=== PATIENT | female | born 1995 | race African-American/Black ===

== ENCOUNTER 2017-10-13 22:09 | Emergency (ER) | payer OTHER ==
[~2017-10-13] VITALS: Ht 160 cm; Wt 104.3 kg
--- NOTE | ~2017-10-13 | EKG ---
[address] [place] [address] ELECTROCARDIOGRAM REPORT Name: MYNOR PIZANO [facility] [id number] Admission: 10/13/17 Attend Phys: Discharge: 10/14/17 Date of : [birth year] Report #: [id number] THIS REPORT FOR: //name// [facility] ED Test Date: 2017-10-13 Test Time: 22:36:53 Pat Name: MYNOR PIZANO Department: Room: Gender: Lead Tinner: TAMAR : 1995 Requested By: Kale Chamberlani Order Number: [id number] MD: Kike Cevallos Measurements Intervals [place] Rate: 96 P: 17 [place]: 138 QRS: 35 QRSD: 84 T: 17 QT: 352 QTc: 445 Interpretive Statements Sinus rhythm No significant abnormality No previous ECG available for comparison Electronically Signed On 10-14-2017 8:43:55 PATIENT SUPPORT PARTNER by Kike Cevallos [email or web address] <ELECTRONICALLY SIGNED> By: Kike Cevallos MD, [facility] 10/14/17 0843 [id number] 2236 Kike Cevallos MD, FACC /EPI
[2017-10-13 23:06] LABS: ABSOLUTE NEUTROPHILS 4.7 thou/uL (1.4-8.2); BASOPHILS 0.9 % (0.0-2.0); EOSINOPHILS 2.5 % (0.0-3.0); HEMATOCRIT 34.1 % (37.0-47.0); HEMOGLOBIN 11.1 gm/dL (12.0-15.0); LYMPHOCYTES 22.5 % (24.0-44.0); MCHC 32.4 g/dL (28.0-37.0); MCV 74.1 fL (80.0-100.0); MONOCYTES 8.1 % (1.0-8.0); PLATELET COUNT 401 thou/uL (150-400); RDW 18.8 % (10.5-14.5); WBC 7.1 thou/uL (4.0-11.0)
[2017-10-13 23:08] LABS: ANION GAP 8 mmol/L (7-16); BUN 10 mg/dL (7-18); CALCIUM 8.7 mg/dL (8.5-10.1); CHLORIDE 103 mmol/L (98-107); CO2 26 mmol/L (21-32); GLUCOSE 95 mg/dL (74-106); POTASSIUM 3.6 mmol/L (3.5-5.1); SODIUM 137 mmol/L (136-145)
[2017-10-13 23:17] LABS: ALBUMIN 3.4 g/dL (3.4-5.0); SGOT 21 U/L (15-37); SGPT 32 U/L (30-65); TOTAL BILIRUBIN 0.3 mg/dL (<0.1-1.0); TOTAL PROTEIN 7.4 g/dL (6.4-8.2); TROPONIN-I < 0.04 ng/mL (<0.06)
== END 2017-10-14 02:33 ==
LOC: ER 22:09
PROVIDERS: Emergency Medicine
DX: R55 Syncope and collapse (principal); Z88.1 Allergy status to other antibiotic agents

== ENCOUNTER 2018-09-25 12:55 | Emergency (ER) | payer OTHER ==
[~2018-09-25] VITALS: Ht 160 cm; Wt 98.0 kg
[2018-09-25 13:14] LABS: ABSOLUTE NEUTROPHILS 3.6 thou/uL (1.4-8.2); BASOPHILS 0.8 % (0.0-2.0); HEMATOCRIT 34.7 % (37.0-47.0); HEMOGLOBIN 11.5 gm/dL (12.0-15.0); LYMPHOCYTES 31.5 % (24.0-44.0); MCH 25.6 pg (26.0-34.0); MCV 77.7 fL (80.0-100.0); MONOCYTES 6.6 % (1.0-8.0); PLATELET COUNT 341 thou/uL (150-400); POLYS 59.1 % (36.0-66.0); RBC 4.47 mil/uL (4.20-5.00); RDW 19.2 % (10.5-14.5); WBC 6.2 thou/uL (4.0-11.0)
[2018-09-25 13:22] LABS: CALCIUM 8.8 mg/dL (8.5-10.1); CREATININE 0.8 mg/dL (0.6-1.0); POTASSIUM 3.8 mmol/L (3.5-5.1)
[2018-09-25 14:00] LABS: ANISOCYTOSIS 1+; PLATELET ESTIMATE NORMAL
[2018-09-25 15:03] VITALS: BP 142/88
--- NOTE | 2018-09-25 15:17 | EKG ---
[place] [address] [facility] [place] [address] ELECTROCARDIOGRAM REPORT Name: MYNOR PIZANO 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
== END 2018-09-25 15:06 | disposition home or self-care (01) ==
LOC: ER 12:55
PROVIDERS: Emergency Medicine
DX: R55 Syncope and collapse (principal); I10 Essential (primary) hypertension; K21.9 Gastro-esophageal reflux disease without esophagitis; Z88.1 Allergy status to other antibiotic agents; Z91.018 Allergy to other foods; Z88.8 Allergy status to other drugs, medicaments and biological substances

== ENCOUNTER 2018-12-09 09:59 | Emergency (ER) | payer OTHER ==
[~2018-12-09] VITALS: Ht 160 cm; Wt 93.0 kg
[2018-12-09] MEDS ORDERED: PRILOSEC 10MG C10 MG PO (10:03)
[2018-12-09 10:32] LABS: ABSOLUTE NEUTROPHILS 4.9 thou/uL (1.4-8.2); BASOPHILS 0.5 % (0.0-2.0); EOSINOPHILS 0.8 % (0.0-3.0); HEMATOCRIT 36.6 % (37.0-47.0); LYMPHOCYTES 16.7 % (24.0-44.0); MCH 25.6 pg (26.0-34.0); MCHC 32.9 g/dL (28.0-37.0); MCV 77.7 fL (80.0-100.0); PLATELET COUNT 324 thou/uL (150-400); RBC 4.71 mil/uL (4.20-5.00); WBC 6.5 thou/uL (4.0-11.0)
[2018-12-09 10:37] LABS: CALCIUM 9.5 mg/dL (8.5-10.1); CREATININE 0.9 mg/dL (0.6-1.0); POTASSIUM 3.4 mmol/L (3.5-5.1)
[2018-12-09 10:44] LABS: ALBUMIN 3.9 g/dL (3.4-5.0); TOTAL BILIRUBIN 0.5 mg/dL (<0.1-1.0)
[2018-12-09 10:47] LABS: URINE BILIRUBIN NEGATIVE (Negative); URINE BLOOD NEGATIVE (Negative); URINE CLARITY CLEAR; URINE COLOR YELLOW; URINE GLUCOSE-RANDOM* NEGATIVE (Negative); URINE KETONES 1+ (Negative); URINE LEUKOCYTES-REFLEX TRACE (Negative); URINE NITRITE-REFLEX NEGATIVE (Negative); URINE PROTEIN (DIPSTICK) NEGATIVE (Negative); URINE SPECIFIC GRAVITY 1.015 (1.005-1.035)
[2018-12-09] MEDS ORDERED: ONDANSETRON HCL4 M2 PO (11:43)
[2018-12-09 11:58] VITALS: BP 143/86
--- NOTE | 2018-12-09 17:16 | EKG ---
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1995 Requested By: Madison Cruz Order Number: [id number] MD: Floyd Beth Measurements Intervals [place] Rate: 91 P: 33 MD: 140 QRS: 32 QRSD: 87 T: 11 QT: 331 QTc: 408 Interpretive Statements Sinus rhythm Compared to ECG 09/25/2018 13:08:59 No significant changes Electronically Signed On 12-09-2018 17:15:46 CDT by Floyd Beth [email or web address] ��������������������������������������������� <ELECTRONICALLY SIGNED> ���������������������������������������� By: Floyd Beth MD ��������������������������������������������� 12/09/18 1715 1013 1013 MD ARACELI Jacobson
== END 2018-12-09 11:59 | disposition home or self-care (01) ==
LOC: ER 09:59
PROVIDERS: Physician Assistant
DX: E87.6 Hypokalemia (principal); R00.2 Palpitations; R11.0 Nausea; I10 Essential (primary) hypertension; K21.9 Gastro-esophageal reflux disease without esophagitis; Z88.8 Allergy status to other drugs, medicaments and biological substances; Z88.1 Allergy status to other antibiotic agents; Z91.018 Allergy to other foods

== ENCOUNTER 2019-01-09 10:51 | Emergency (ER) | payer OTHER ==
[~2019-01-09] VITALS: Ht 162.6 cm; Wt 61.2 kg
[~2019-01-09 10:51] MED LIST: ONDANSETRON HCL4 M2 PO; PRILOSEC 10MG C10 MG PO
[2019-01-09] MEDS ORDERED: PRILOSEC 10MG C10 MG PO (11:05)
[2019-01-09 11:48] LABS: ABSOLUTE NEUTROPHILS 4.7 thou/uL (1.4-8.2); BASOPHILS 0.5 % (0.0-2.0); EOSINOPHILS 0.6 % (0.0-3.0); HEMATOCRIT 34.9 % (37.0-47.0); HEMOGLOBIN 11.7 gm/dL (12.0-15.0); LYMPHOCYTES 14.8 % (24.0-44.0); MCH 26.2 pg (26.0-34.0); MCHC 33.5 g/dL (28.0-37.0); MCV 78.3 fL (80.0-100.0); MONOCYTES 6.3 % (1.0-8.0); PLATELET COUNT 309 thou/uL (150-400); POLYS 77.8 % (36.0-66.0); RBC 4.45 mil/uL (4.20-5.00); RDW 17.8 % (10.5-14.5)
[2019-01-09 11:54] LABS: ANION GAP 9 mmol/L (7-16); BUN 5 mg/dL (7-18); CALCIUM 9.1 mg/dL (8.5-10.1); CHLORIDE 103 mmol/L (98-107); CO2 25 mmol/L (21-32); CREATININE 0.8 mg/dL (0.6-1.0); GLUCOSE 101 mg/dL (74-106); POTASSIUM 3.7 mmol/L (3.5-5.1); SODIUM 137 mmol/L (136-145)
[2019-01-09 12:04] LABS: ALBUMIN 3.6 g/dL (3.4-5.0); SGOT 16 U/L (15-37); SGPT 22 U/L (30-65); TOTAL BILIRUBIN 0.3 mg/dL (<0.1-1.0); TOTAL PROTEIN 7.6 g/dL (6.4-8.2); TROPONIN-I <0.06 ng/mL (<0.06)
[2019-01-09 13:42] VITALS: BP 123/80
--- NOTE | 2019-01-09 13:53 | EKG ---
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: SEBASTIÁN : 1995 Requested By: Liam Aviles Order Number: [id number] MD: Floyd Beth Measurements Intervals [place] Rate: 86 P: 35 PA: 142 QRS: 30 QRSD: 86 T: 8 QT: 365 QTc: 437 Interpretive Statements Sinus rhythm Compared to ECG 12/09/2018 10:13:25 No significant changes Electronically Signed On 01-09-2019 13:53:35 CDT by Floyd Beth [email or web address] ��������������������������������������������� <ELECTRONICALLY SIGNED> ���������������������������������������� By: Floyd Beth MD ��������������������������������������������� 01/09/19 1353 1058 1058 MD ARACELI Jacobson
== END 2019-01-09 13:42 | disposition home or self-care (01) ==
LOC: ER 10:51
PROVIDERS: Emergency Medicine
DX: R51 Headache (principal); R07.89 Other chest pain; R11.2 Nausea with vomiting, unspecified; I10 Essential (primary) hypertension; K21.9 Gastro-esophageal reflux disease without esophagitis; Z88.1 Allergy status to other antibiotic agents; Z91.018 Allergy to other foods; Z88.8 Allergy status to other drugs, medicaments and biological substances

== ENCOUNTER 2019-03-30 13:06 | Emergency (ER) | payer OTHER ==
[~2019-03-30] VITALS: Ht 160 cm; Wt 88.0 kg
--- NOTE | ~2019-03-30 | EMS ---
[address] [address] EMS Patient Care Report Name: MYNOR PIZANO Room #: DEP MAYTE Kilgore#: [id number] Admission: 03/30/19 Attend Phys: Discharge: 03/30/19 Date of : [birth year] Report #: [id number] THIS REPORT FOR: //name// Report Transmitted: 03/30/2019 22:05 EMS Care Summary [facility] MED-ACT Incident [id number] @ 03/30/2019 12:20 Incident Location [address] [place] [address] Patient MYNOR PIZANO Female, 23 Years 1995 Patient Address [address] [place] [address] Patient History Other, Patient Allergies Other drug allergy, Patient Medications Nifedipine, Omeprazole, Chief Complaint "I feel dizzy." Disposition Transported No Lights/[place] Dispatch Reason Unconscious/Fainting Transported To [facility] Narrative M1144 responded with S40 for a unconscious subject. Upon arrival to the scene, pt was found laying on the floor with her feet up on the chair. PT informed crews that she has a history of vertigo and that when it [address] [address] EMS Patient Care Report Name: MYNOR PIZANO [facility] [id number] Admission: 03/30/19 Attend Phys: Discharge: 03/30/19 Date of : [birth year] Report #: [id number] gets bad she just relaxes and does breathing exercises and it goes away overtime. PT said that the feeling today has stayed for longer and felt a bit different. Pt said that it felt like her head was spinning. Normally her vertigo her "ears ring." and they were not today. PT felt the same level of dizziness laying down, sitting up and standing. Pt said that she felt nauseous all the time and that it is normal for her because of her vertigo. Pt had not eaten any big meal today. She had just a few crackers and water. PT denied loss of consciousness. Pt denied any chest pain, abdominal pain or difficulty breathing. Pt was assisted onto the stretcher and secured in position of comfort via safety belts. Stretcher was secured in ambulance. 12 lead preformed in ambulance for pt privacy. BIOCOM to ED with pt information only. Upon arrival to was take to room. Pt transferred form stretcher to the hospital bed via her own strength. Verbal report was given to RN and transfer of care was completed. Initial Vitals @12:53P: 95,BP: 146/91,SpO2: 100, @12:58P: 109,BP: 138/98,SpO2: 100, @12:41P: 83,R: 16,BP: 153/94,Pain: 0/10,SpO2: 96,[place] Suspected: false @12:29P: 102,R: 16,BP: 171/101,GCS: 15,SpO2: 82,Revised Trauma: 12, @12:31P: 106,BP: 169/102,Glucose: 91,SpO2: 99, Assessments @12:29MENTAL:No Abnormalities,SKIN:HEENT:Head/Face: No Abnormalities,LUNG SOUNDS:General: No Abnormalities,ABDOMEN:General: No Abnormalities,PELVIS//GI:No Abnormalities,EXTREMITIES:Left Arm: No Abnormalities,Right Arm: No Abnormalities,Left Leg: No Abnormalities,Right Leg: No Abnormalities,PULSE:NEURO:No Abnormalities, Impression Dizziness Procedures @12:4112-Lead ECGResponse: UnchangedSucceeded@12:50Ondansetron - 4 Milligrams (mg) - OralResponse: Improved Timeline 12:19,Call Received 12:19,Psap Call 12:20,Dispatched 12:21,En Route 12:25,On Scene 12:28,At Patient [address] [address] EMS Patient Care Report Name: PIZANOMYNOR Room #: [facility] Jame#: [id number] Admission: 03/30/19 Attend Phys: Discharge: 03/30/19 Date of : [birth year] Report #: [id number] 12:29,BP: 171/101 M,PULSE: 102,RR: 16 R,SPO2: 82 Ox,ETCO2: ,BG: ,PAIN: ,GCS: 15, 12:31,BP: 169/102 M,PULSE: 106,RR: R,SPO2: 99 Ox,ETCO2: ,B,PAIN: ,GCS: , 12:41,12-Lead ECG,Response: UnchangedSucceeded, 12:41,BP: 153/94 M,PULSE: 83,RR: 16 R,SPO2: 96 Ox,ETCO2: ,BG: ,PAIN: 0,GCS: , 12:46,Depart Scene 12:50,Ondansetron - 4 Milligrams (mg) - Oral,Response: Improved 12:53,BP: 146/91 M,PULSE: 95,RR: R,SPO2: 100 Ox,ETCO2: ,BG: ,PAIN: ,GCS: , 12:58,BP: 138/98 M,PULSE: 109,RR: R,SPO2: 100 Ox,ETCO2: ,BG: ,PAIN: ,GCS: , 13:01,At Destination 13:20,Call Closed Disclaimer v1.1 Copyright 2019 [employer] This EMS Care Summary contains data elements from the applicable legal record (which may be displayed differently). It is designed to provide pertinent information for the following purposes: continuity of care, clinical quality, and state data reporting. The complete legal record is available to ED staff and administrators of the receiving hospital in [email or web address]'s Patient Tracker. All data is provided "as is."
[2019-03-30] MEDS ORDERED: ADALAT CC30 MG PO (13:21)
[2019-03-30 14:09] LABS: ABSOLUTE NEUTROPHILS 4.2 thou/uL (1.4-8.2); BASOPHILS 0.6 % (0.0-2.0); EOSINOPHILS 2.1 % (0.0-3.0); HEMATOCRIT 36.9 % (37.0-47.0); HEMOGLOBIN 12.2 gm/dL (12.0-15.0); LYMPHOCYTES 20.6 % (24.0-44.0); MCH 26.8 pg (26.0-34.0); MCHC 33.2 g/dL (28.0-37.0); MCV 80.8 fL (80.0-100.0); MONOCYTES 7.5 % (1.0-8.0); PLATELET COUNT 292 thou/uL (150-400); POLYS 69.2 % (36.0-66.0); RBC 4.57 mil/uL (4.20-5.00); RDW 17.3 % (10.5-14.5); WBC 6.1 thou/uL (4.0-11.0)
[2019-03-30 14:17] LABS: CALCIUM 9.2 mg/dL (8.5-10.1); CREATININE 0.9 mg/dL (0.6-1.0); POTASSIUM 3.3 mmol/L (3.5-5.1)
[2019-03-30 14:22] LABS: ALBUMIN 3.8 g/dL (3.4-5.0); TOTAL BILIRUBIN 0.4 mg/dL (<0.1-1.0); TOTAL PROTEIN 7.1 g/dL (6.4-8.2)
[2019-03-30 14:25] VITALS: BP 142/85
--- NOTE | 2019-03-31 17:22 | EKG ---
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
== END 2019-03-30 14:25 | disposition left against medical advice (07) ==
LOC: ER 13:06
PROVIDERS: Physician Assistant
DX: R42 Dizziness and giddiness (principal); I10 Essential (primary) hypertension; K21.9 Gastro-esophageal reflux disease without esophagitis; Z88.1 Allergy status to other antibiotic agents; Z91.018 Allergy to other foods; Z88.8 Allergy status to other drugs, medicaments and biological substances

== ENCOUNTER 2019-04-21 07:20 | Emergency (ER) | payer OTHER ==
[~2019-04-21] VITALS: Ht 160 cm; Wt 86.2 kg
[~2019-04-21 07:20] MED LIST changes: +ADALAT CC30 MG PO
[2019-04-21 08:07] LABS: URINE BILIRUBIN NEGATIVE (Negative); URINE BLOOD NEGATIVE (Negative); URINE CLARITY CLEAR; URINE COLOR YELLOW; URINE GLUCOSE-RANDOM* NEGATIVE (Negative); URINE KETONES NEGATIVE (Negative); URINE NITRITE-REFLEX NEGATIVE (Negative); URINE PROTEIN (DIPSTICK) NEGATIVE (Negative); URINE SPECIFIC GRAVITY 1.015 (1.005-1.035); URINE UROBILINOGEN 0.2 E.U./dl (0.2-1.0)
[2019-04-21 08:08] LABS: URINE LEUKOCYTES-REFLEX 1+ (Negative)
[2019-04-21 08:14] LABS: BASOPHILS 0.1 % (0.0-2.0); EOSINOPHILS 1.1 % (0.0-3.0); HEMATOCRIT 36.3 % (37.0-47.0); HEMOGLOBIN 11.8 gm/dL (12.0-15.0); LYMPHOCYTES 15.1 % (24.0-44.0); MCH 26.8 pg (26.0-34.0); MCHC 32.6 g/dL (28.0-37.0); MCV 82.3 fL (80.0-100.0); MONOCYTES 5.7 % (1.0-8.0); PLATELET COUNT 373 thou/uL (150-400); RBC 4.41 mil/uL (4.20-5.00); RDW 17.4 % (10.5-14.5); WBC 7.7 thou/uL (4.0-11.0)
[2019-04-21 08:26] LABS: ALBUMIN 3.3 g/dL (3.4-5.0); ANION GAP 6 mmol/L (7-16); BUN 9 mg/dL (7-18); CHLORIDE 102 mmol/L (98-107); CO2 27 mmol/L (21-32); CREATININE 0.9 mg/dL (0.6-1.0); GLUCOSE 99 mg/dL (74-106); LIPASE 118 U/L (73-393); SGOT 5 U/L (15-37); SGPT 11 U/L (30-65); SODIUM 135 mmol/L (136-145); TOTAL BILIRUBIN < 0.1 mg/dL (<0.1-1.0); TOTAL PROTEIN 7.3 g/dL (6.4-8.2)
[2019-04-21 08:35] LABS: BACTERIA-REFLEX 1-9 Few /HPF (None Seen); CASTS None Seen /LPF (None Seen); CRYSTALS None Seen /LPF (None Seen); SQUAMOUS 4-10 Moderate /LPF (0-3); URINE RBC None Seen /HPF (0-2); URINE WBC-REFLEX 6-15 Few /HPF (0-5)
[2019-04-21] MEDS ORDERED: PROTONIX40 M1 PO (08:53)
[2019-04-21] MEDS ORDERED: CARAFATE 1 GM TA1 G1 PO (08:53)
[2019-04-21] MEDS ORDERED: ONDANSETRON HCL4 M2 PO (08:53)
[2019-04-21 09:51] VITALS: BP 146/91
== END 2019-04-21 09:52 | disposition home or self-care (01) ==
LOC: ER 07:20
PROVIDERS: Emergency Medicine
DX: K29.70 Gastritis, unspecified, without bleeding (principal); I10 Essential (primary) hypertension; K21.9 Gastro-esophageal reflux disease without esophagitis; Z88.1 Allergy status to other antibiotic agents; Z91.018 Allergy to other foods; Z88.8 Allergy status to other drugs, medicaments and biological substances

== ENCOUNTER 2019-05-11 08:55 | Emergency (ER) | payer OTHER ==
[~2019-05-11] VITALS: Ht 160 cm; Wt 84.8 kg
--- NOTE | ~2019-05-11 | EMS ---
[facility] [address] [place] [address] EMS Patient Care Report Name: MYNOR PIZANO Room #: PRE M.RMary Jane#: [id number] Admission: Attend Phys: Discharge: Date of : [birth year] Report #: [id number] THIS REPORT FOR: //name// Report Transmitted: 05/11/2019 09:05 EMS Care Summary [facility] MED-ACT Incident [id number] @ 05/11/2019 08:09 Incident Location [address] [place] [address] Patient MYNOR PIZANO Female, 23 Years 1995 Patient Address [address] [place] [address] Patient History Cardiac Arrythmia,Gastro-Esophageal Reflux Disease (GERD), Patient Allergies Augmentin,Other drug allergy, Patient Medications Nifedipine, Omeprazole, Chief Complaint My heart is racing Disposition Transported No Lights/[place] Dispatch Reason Heart Problems/AICD Transported To [facility] Narrative C: My heart is racing, My chest hurts H: M1143 dispatched C1 to [facility] for a 23 yof with heart problems. [facility] [address] [place] [address] EMS Patient Care Report Name: MYNOR PIZANO Room #: PRE ER .R.#: [id number] Admission: Attend Phys: Discharge: Date of : [birth year] Report #: [id number] Pt states that since she woke up this morning, approx 06:00, she has had shooting chest pain and nausea. Pt states the pain started as a sharp 10/10 and developed into a dull intermittent ache that is still a 10/10. Pt states that she has been dealing with worsening acid reflux lately and 2 weeks ago she went to the ER to receive treatment for it. Pt states that she also has a Hx of random bouts of tachycardia which started approx 2 years ago. Pt states that symptoms vary from minor discomfort to near syncope, but she has never had chest pain with the tachycardia before. Pt states that she had 2 episodes of vomiting prior to EMS arrival and describes it as clear and viscus. Pt states that she had been taking Ibuprofen for the chest pain. A: Arrived to find Pt sitting in office chair in the care of [facility]. A- open, clear. B- spontaneous, rapid, shallow. C- strong, regularly irregular, radial. S- warm, dry, pink. Pt was very anxious and crying. Pt was cooperative and able to follow commands. Pt was able to speak in complete sentences. Pt was ambulatory on scene without assistance. Initial HR on the monitor was sinus tachycardia/arrhythmia between 116 and 146. R: HPI, report from [facility], primary exam, physical exam, VS, 4-lead, 12-lead, Pt sat on cot, secured with seat belts x3, moved to ambulance, IV lock, transport. T: Pt transported non emergent to [facility] in fowlers position. Supportive care, repeat VS, repeat 12-lead, bio-com. Pt's demeanor at this time was very calm and showed no outward signs of distress. Pt reports feeling an unease in her stomach and that the chest pain is still 10/10. HR rate observed on the monitor was sinus arrhythmia between 76 and 92. D: Upon arrival at ER Pt was taken to triage and she was able to move to a wheel chair on her own. Report was given to RN and Pt care was transferred to hospital staff without incident. M1143 cleared. Initial Vitals @08:21P: 124,SpO2: 100,SC Suspected: false @PTAP: 101,R: 16,BP: 158/98,Pain: 10/10,GCS: 15,SpO2: 100,Revised Trauma: 12,SC Suspected: false @08:48P: 80,R: 12,BP: 144/103,Pain: 10/10,GCS: 15,SpO2: 99,Revised Trauma: 12,SC Suspected: false @08:35P: 97,R: 14,BP: 145/101,Pain: 10/10,GCS: 15,Glucose: 141,SpO2: 100,Revised Trauma: 12, Assessments @08:19MENTAL:Other,Person Oriented,Time Oriented,Event Oriented,Place Oriented,SKIN:HEENT:Head/Face: No Abnormalities,Neck/Airway: No Abnormalities,LUNG SOUNDS:General: No Abnormalities,Left Upper: No Abnormalities,Right Upper: No Abnormalities,Left Lower: No Abnormalities,Right Lower: No Abnormalities,ABDOMEN:General: No Abnormalities,Left Upper: No [facility] [address] [place] [address] EMS Patient Care Report Name: MYNOR PIZANO Room #: PRE M.R.#: [id number] Admission: Attend Phys: Discharge: Date of : [birth year] Report #: [id number] Abnormalities,Right Upper: No Abnormalities,Left Lower: No Abnormalities,Right Lower: No Abnormalities,PELVIS//GI:No Abnormalities,EXTREMITIES:Left Arm: No Abnormalities,Right Arm: No Abnormalities,Left Leg: No Abnormalities,Right Leg: No Abnormalities,PULSE:Radial: 2+ Normal,NEURO:No Abnormalities, Impression Cardiac arrhythmia/dysrhythmia Procedures @08:2112-Lead ECGResponse: UnchangedSucceeded@08:19ALS AssessmentResponse: UnchangedSucceeded@08:35Saline Lock 10cc (18 ga) Site: Antecubital-RightResponse: UnchangedSucceeded@08:4812-Lead ECGResponse: UnchangedSucceeded Timeline DIABETES EDUCATION COORDINATOR,BP: 158/98 M,PULSE: 101,RR: 16 R,SPO2: 100 Ox,ETCO2: ,BG: ,PAIN: 10,GCS: 15, 08:08,Call Received 08:08,Psap Call 08:09,Dispatched 08:10,En Route 08:15,On Scene 08:18,At Patient 08:19,ALS Assessment,Response: UnchangedSucceeded, 08:21,12-Lead ECG,Response: UnchangedSucceeded, 08:21,BP: / M,PULSE: 124,RR: R,SPO2: 100 Ox,ETCO2: ,BG: ,PAIN: ,GCS: , 08:35,Saline Lock 10cc 18 ga Site: Antecubital-Right,Response: UnchangedSucceeded, 08:35,BP: 145/101 M,PULSE: 97,RR: 14 R,SPO2: 100 Ox,ETCO2: ,B,PAIN: 10,GCS: 15, 08:37,Depart Scene 08:48,12-Lead ECG,Response: UnchangedSucceeded, 08:48,BP: 144/103 M,PULSE: 80,RR: 12 R,SPO2: 99 Ox,ETCO2: ,BG: ,PAIN: 10,GCS: 15, 08:52,At Destination 09:12,Call Closed Disclaimer v1.1 Copyright 2019 [employer] This EMS Care Summary contains data elements from the applicable legal record (which may be displayed differently). It is designed to provide pertinent information for the following purposes: continuity of care, clinical quality, and state data reporting. The complete legal record is available to ED staff and administrators of the receiving hospital in [employer]'s Patient Tracker. All data is provided "as is."
[~2019-05-11 08:55] MED LIST changes: +CARAFATE 1 GM TA1 G1 PO; +PROTONIX40 M1 PO
[2019-05-11 09:28] LABS: URINE BILIRUBIN NEGATIVE (Negative); URINE BLOOD 2+ (Negative); URINE CLARITY CLEAR; URINE COLOR YELLOW; URINE GLUCOSE-RANDOM* NEGATIVE (Negative); URINE KETONES NEGATIVE (Negative); URINE LEUKOCYTES 2+ (Negative); URINE NITRITE NEGATIVE (Negative); URINE PROTEIN (DIPSTICK) NEGATIVE (Negative); URINE SPECIFIC GRAVITY <= 1.005 (1.005-1.035); URINE UROBILINOGEN 0.2 E.U./dl (0.2-1.0)
[2019-05-11 09:30] LABS: ABSOLUTE NEUTROPHILS 4.5 thou/uL (1.4-8.2); BASOPHILS 0.6 % (0.0-2.0); EOSINOPHILS 0.8 % (0.0-3.0); HEMATOCRIT 35.1 % (37.0-47.0); HEMOGLOBIN 11.5 gm/dL (12.0-15.0); LYMPHOCYTES 15.3 % (24.0-44.0); MCHC 32.8 g/dL (28.0-37.0); MCV 82.5 fL (80.0-100.0); MONOCYTES 5.3 % (1.0-8.0); PLATELET COUNT 357 thou/uL (150-400); RBC 4.25 mil/uL (4.20-5.00); RDW 16.4 % (10.5-14.5); WBC 5.8 thou/uL (4.0-11.0)
[2019-05-11 09:38] LABS: CALCIUM 9.2 mg/dL (8.5-10.1); CREATININE 0.8 mg/dL (0.6-1.0); POTASSIUM 3.2 mmol/L (3.5-5.1)
[2019-05-11 09:44] LABS: BACTERIA 1-9 Few /HPF (None Seen); CASTS None Seen /LPF (None Seen); CRYSTALS None Seen /LPF (None Seen); SQUAMOUS >10 Many /LPF (0-3); URINE RBC 3-10 Few /HPF (0-2); URINE WBC 6-15 Few /HPF (0-5)
[2019-05-11 09:45] LABS: ALBUMIN 3.7 g/dL (3.4-5.0); TOTAL BILIRUBIN 0.1 mg/dL (<0.1-1.0); TOTAL PROTEIN 7.5 g/dL (6.4-8.2)
[2019-05-11 12:09] VITALS: BP 103/78
[2019-05-11] MEDS ORDERED: PROTONIX40 MG PO (12:10)
--- NOTE | 2019-05-12 14:05 | EKG ---
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
== END 2019-05-11 12:30 | disposition home or self-care (01) ==
LOC: ER 08:55
PROVIDERS: Emergency Medicine
DX: K21.9 Gastro-esophageal reflux disease without esophagitis (principal); I10 Essential (primary) hypertension; Z88.1 Allergy status to other antibiotic agents; Z91.018 Allergy to other foods; Z88.8 Allergy status to other drugs, medicaments and biological substances

== ENCOUNTER 2019-06-03 08:01 | Emergency (ER) | payer OTHER ==
[~2019-06-03] VITALS: Ht 160 cm; Wt 81.7 kg
[~2019-06-03 08:01] MED LIST changes: +PROTONIX40 MG PO
[2019-06-03 08:45] LABS: URINE BILIRUBIN NEGATIVE (Negative); URINE BLOOD NEGATIVE (Negative); URINE CLARITY CLEAR; URINE COLOR YELLOW; URINE GLUCOSE-RANDOM* NEGATIVE (Negative); URINE KETONES NEGATIVE (Negative); URINE LEUKOCYTES-REFLEX TRACE (Negative); URINE NITRITE-REFLEX NEGATIVE (Negative); URINE PROTEIN (DIPSTICK) NEGATIVE (Negative)
[2019-06-03 08:59] LABS: ABSOLUTE NEUTROPHILS 4.7 thou/uL (1.4-8.2); BASOPHILS 0.8 % (0.0-2.0); EOSINOPHILS 1.7 % (0.0-3.0); HEMATOCRIT 36.4 % (37.0-47.0); HEMOGLOBIN 11.8 gm/dL (12.0-15.0); LYMPHOCYTES 13.9 % (24.0-44.0); MCH 26.7 pg (26.0-34.0); MCHC 32.4 g/dL (28.0-37.0); MCV 82.6 fL (80.0-100.0); MONOCYTES 6.3 % (1.0-8.0); PLATELET COUNT 288 thou/uL (150-400); POLYS 77.3 % (36.0-66.0); RBC 4.41 mil/uL (4.20-5.00); WBC 6.1 thou/uL (4.0-11.0)
[2019-06-03 09:06] LABS: CALCIUM 8.7 mg/dL (8.5-10.1); CREATININE 0.8 mg/dL (0.6-1.0); POTASSIUM 3.7 mmol/L (3.5-5.1)
[2019-06-03 09:13] LABS: ALBUMIN 3.4 g/dL (3.4-5.0); TOTAL BILIRUBIN 0.1 mg/dL (<0.1-1.0); TOTAL PROTEIN 7.2 g/dL (6.4-8.2)
[2019-06-03] MEDS ORDERED: LEVSIN0.125 MG PO (09:43)
[2019-06-03 10:14] VITALS: BP 133/89
== END 2019-06-03 10:15 | disposition home or self-care (01) ==
LOC: ER 08:01
PROVIDERS: Emergency Medicine
DX: R10.84 Generalized abdominal pain (principal); R14.0 Abdominal distension (gaseous); R19.7 Diarrhea, unspecified; R11.0 Nausea; I10 Essential (primary) hypertension; K21.9 Gastro-esophageal reflux disease without esophagitis; Z88.1 Allergy status to other antibiotic agents; Z91.018 Allergy to other foods; Z88.8 Allergy status to other drugs, medicaments and biological substances

== ENCOUNTER 2019-07-15 18:23 | Emergency (ER) | payer OTHER ==
[~2019-07-15] VITALS: Ht 160 cm; Wt 78.0 kg
[~2019-07-15 18:23] MED LIST changes: +LEVSIN0.125 MG PO
[2019-07-15] MEDS ORDERED: NAPROSYN500 MG PO (20:35)
[2019-07-15] MEDS ORDERED: NORFLEX100 MG PO (20:35)
[2019-07-15 21:42] VITALS: BP 126/86
== END 2019-07-15 21:44 | disposition home or self-care (01) ==
LOC: ER 18:23
DX: M54.5 Low back pain (principal); M54.6 Pain in thoracic spine; I10 Essential (primary) hypertension; K21.9 Gastro-esophageal reflux disease without esophagitis; Z88.1 Allergy status to other antibiotic agents; Z91.018 Allergy to other foods; Z88.6 Allergy status to analgesic agent; Z79.899 Other long term (current) drug therapy

== ENCOUNTER 2019-08-19 08:57 | Emergency (ER) | payer OTHER ==
[~2019-08-19] VITALS: Ht 160 cm; Wt 74.8 kg
[~2019-08-19 08:57] MED LIST changes: +NAPROSYN500 MG PO; +NORFLEX100 MG PO
[2019-08-19 11:16] VITALS: BP 126/87
--- NOTE | 2019-08-19 17:13 | EKG ---
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
== END 2019-08-19 11:17 | disposition home or self-care (01) ==
LOC: ER 08:57
DX: B34.9 Viral infection, unspecified (principal); R00.2 Palpitations; I10 Essential (primary) hypertension; F41.9 Anxiety disorder, unspecified; K21.9 Gastro-esophageal reflux disease without esophagitis; Z88.1 Allergy status to other antibiotic agents; Z91.018 Allergy to other foods

== ENCOUNTER 2020-04-11 07:57 | Emergency (ER) | payer OTHER ==
[~2020-04-11] VITALS: Ht 160 cm; Wt 69.8 kg
[2020-04-11 08:34] LABS: CREATININE 0.9 mg/dL (0.6-1.0); MAGNESIUM 2.1 mg/dL (1.8-2.4); POTASSIUM 3.1 mmol/L (3.5-5.1)
[2020-04-11] MEDS ORDERED: ZOFRAN ODT4 MG PO (10:13)
[2020-04-11 10:27] VITALS: BP 141/70
--- NOTE | 2020-04-12 07:38 | EKG ---
[facility] [place] [address] ELECTROCARDIOGRAM REPORT Name: PIZANOMYNOR Room #: [facility]#: [id number] Admission: 04/11/20 Attend Phys: Discharge: 04/11/20 Date of : [birth year] Report #: [id number] THIS REPORT FOR: cc: Aleyda Ley DNP, Mary E. DNP Lundgren, Craig H. 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: [facility] : 1995 Requested By: Mendez Bee Order Number: [id number] MD: Kike Cevallos Measurements Intervals [place] Rate: 71 P: -22 [place]: 112 QRS: 69 QRSD: 86 T: 48 QT: 374 QTc: 407 Interpretive Statements Sinus rhythm Early repolarization Compared to ECG 08/19/2019 09:48:20 No significant changes Electronically Signed On 04-12-2020 7:38:09 CDT by Kike Cevallos [email or web address] <ELECTRONICALLY SIGNED> By: Kike Cevallos MD, [facility] 04/12/20 0738 5 5 Kike Cevallos MD, [facility] /EPI
== END 2020-04-11 10:28 | disposition home or self-care (01) ==
LOC: ER 07:57
PROVIDERS: Emergency Medicine
DX: R11.2 Nausea with vomiting, unspecified (principal); R00.2 Palpitations; R53.83 Other fatigue; I10 Essential (primary) hypertension; K21.9 Gastro-esophageal reflux disease without esophagitis; F41.9 Anxiety disorder, unspecified; Z79.899 Other long term (current) drug therapy; Z88.1 Allergy status to other antibiotic agents; Z91.018 Allergy to other foods; Z88.8 Allergy status to other drugs, medicaments and biological substances